=== PATIENT | female | born 1985 | race African-American/Black ===

== ENCOUNTER 2020-11-25 20:02 | Emergency (ER) | payer SELFPAY ==
[2020-11-25 20:10] VITALS: TEMP 98.3; BMI 36.5
[2020-11-25 20:50] VITALS: BP 151/102; PULSE 60
== END 2020-11-25 23:35 | disposition home or self-care (01) ==
LOC: JER 20:02
DX: S86.911A Strain of unspecified muscle(s) and tendon(s) at lower leg level, right leg, initial encounter (principal)
CPT/HCPCS: 93971-TC; 99284-25